=== PATIENT | female | born 1965 | race Asian ===

== ENCOUNTER 2021-01-24 15:28 | Emergency (ER) | payer OTHER ==
[~2021-01-24] VITALS: Ht 154.9 cm; Wt 58.0 kg
[2021-01-24 15:40] VITALS: BP 159/78
--- NOTE | 2021-01-24 16:04 | RAD ---
EXAM: Right foot and ankle, 3 views. HISTORY: Pain. Fall. COMPARISON: None. FINDINGS: 3 views of the right foot and ankle are obtained. There is a mildly displaced distal fibula r metaphyseal fracture with approximately 2 cortical widths displacement along the fracture line. The re is overlying soft tissue swelling. There are bunionectomy changes involving the first metatarsal h ead. IMPRESSION: Mildly displaced lateral malleolar fracture with overlying soft tissue swelling. Electronically signed by: Denise Cheng MD (01/24/2021 4:01 PM) [facility]
[2021-01-24] MEDS ORDERED: HYDROcodone/APAP 5/325MG 1 TAB TABLET PO ONE (16:15)
[2021-01-24] MEDS ORDERED: HYDR-2155 PO (16:39)
--- NOTE | 2021-01-24 16:40 | PHYS DOC ---
Past History Past Medical History: No Pertinent History Alcohol Use: Occasionally General Adult EDM: Chief Complaint: ANKLE PROBLEM HPI: HPI: Patient is a 55-year-old female coming in for right ankle pain. Was walking down some steps and lost her balance and fell down 2-3 steps. Denies any other injuries. Has not been to ambulate due to pain. Denies swelling around her ankle. Denies any use of blood thinners. Otherwise has been well Review of Systems: Review of Systems: All other systems within normal limits except for as noted in the HPI Current Medications: Current Meds: Current Medications Medications (Trade) Dose Ordered Sig/Xenia Start Time Stop Time Status Last Admin Dose Admin Acetaminophen/ Hydrocodone Bitart (Lortab 5/325) 1 tab 1X ONCE 01/24/21 16:15 01/24/21 16:16 DC 01/24/21 16:27 1 TAB Allergies: Allergies: Allergies Coded Allergies Type Severity Reaction Last Updated Verified No Known Drug Allergies 01/24/21 No Physical Exam: PE: Constitutional: Well developed, well nourished, no acute distress, non-toxic a ppearance. [] HENT: Normocephalic, atraumatic, bilateral external ears normal, oropharynx moist, no oral exudates, nose normal. [] Eyes: PERRLA, EOMI, conjunctiva normal, no discharge. [] Neck: Normal range of motion, no tenderness, supple, no stridor. [] Cardiovascular:Heart rate regular rhythm, no murmur [] Lungs & Thorax: Bilateral breath sounds clear to auscultation [] Abdomen: Bowel sounds normal, soft, no tenderness, no masses, no pulsatile masses. [] Skin: Warm, dry, no erythema, no rash. [] Back: No tenderness, no CVA tenderness. [] Extremities: No tenderness, no cyanosis, no clubbing, ROM intact, no edema. [] Neurologic: Alert and oriented X 3, normal motor function, normal sensory function, no focal deficits noted. [] Psychologic: Affect normal, judgement normal, mood normal. [] Current Patient Data: Vital Signs: Vital Signs Date Time Temp Pulse Resp B/P (MAP) Pulse Ox O2 Delivery O2 Flow Rate FiO2 01/24/21 16:27 20 Room Air 01/24/21 15:40 98.9 78 159/78 (105) 98 EKG: EKG: [] Radiology/Procedures: Radiology/Procedures: EXAM: Right foot and ankle, 3 views. HISTORY: Pain. Fall. COMPARISON: None. FINDINGS: 3 views of the right foot and ankle are obtained. There is a mildly displaced distal fibular metaphyseal fracture with approximately 2 cortical widths displacement along the fracture line. There is overlying soft tissue swelling. There are bunionectomy changes involving the first metatarsal head. IMPRESSION: Mildly displaced lateral malleolar fracture with overlying soft tissue swelling. [] Heart Score: C/O Chest Pain: No Risk Factors: Risk Factors: DM, Current or recent (<one month) smoker, HTN, HLP, family history of CAD, obesity. Risk Scores: Score 0 - 3: 2.5% MACE over next 6 weeks - Discharge Home Score 4 - 6: 20.3% MACE over next 6 weeks - Admit for Clinical Observation Score 7 - 10: 72.7% MACE over next 6 weeks - Early Invasive Strategies Course & Med Decision Making: Course & Med Decision Making Pertinent Labs and Imaging studies reviewed. (See chart for details) [] Dragon Disclaimer: Dragon Disclaimer: This electronic medical record was generated, in whole or in part, using a voice recognition dictation system. Departure Departure: Impression: Primary Impression: Closed left fibular fracture Disposition: 01 HOME / SELF CARE / HOMELESS Condition: STABLE Referrals: NANDINI BURNS MD (PCP) Patient Instructions: Cast or Splint Care Additional Instructions: [facility] [id number] [facility], [address] [address] Scripts Hydrocodone Bit/Acetaminophen (HYDROCODONE-APAP 5-325 ) 1 Each Tablet 1 TAB PO PRN Q6HRS PRN for PAIN for 5 Days, #10 TAB 0 Refills Caution: this medication can make you drowsy. Do not drive or operate heavy machinery when using this medication. Prov: MEHNAZ MONCADA MD 01/24/21 MEHNAZ MONCADA MD January 24, 2021 16:39
== END 2021-01-24 16:55 | disposition home or self-care (01) ==
LOC: ER 15:28
DX: S82.831A Other fracture of upper and lower end of right fibula, initial encounter for closed fracture (principal); W10.8XXA Fall (on) (from) other stairs and steps, initial encounter; Y93.01 Activity, walking, marching and hiking; Y92.89 Other specified places as the place of occurrence of the external cause; Y99.8 Other external cause status
CPT/HCPCS: 29515; 73610; 73630; 99284; L4350